=== PATIENT | male | born 1975 | race African-American/Black ===

== ENCOUNTER 2016-12-10 12:38 | Emergency (ER) | payer BC, OTHER ==
[~2016-12-10] VITALS: Ht 185.4 cm; Wt 140.6 kg
[~2016-12-10 12:38] MED LIST: ACHD5005 PO; AMLO5TAB2 GT; AMLO5TAB2 PO; ATEN50TA PO; CEPH500C PO; CPR500T PO; CYCL10TA9 PO; DICY10CA26 PO; HYDR-3714 PO; HYDR1TAB PO; NAPR-243 PO; NAPR550T PO; OMEP20CA12 PO; OMEP40CA36 PO; ONDA-42 SL; PRD20T PO; SULF1TAB38 PO
[2016-12-10] MEDS ORDERED: SILD100T (13:07)
[2016-12-10] MEDS ORDERED: DEXAMETHASONE PF 10 MG/ML (DECADRON) VIAL INJ ONE (13:45)
[2016-12-10] MEDS ORDERED: HYDROcodone/APAP 5 MG/325 MG (LORTAB) TAB PO ONE (13:45)
[2016-12-10] MEDS ORDERED: LIDOCAINE 1% INJ 20 ML (XYLOCAINE) VIAL INJ ONE (13:45)
--- NOTE | 2016-12-10 14:01 | Diagnostic Imaging Report ---
INDICATION: Recent left lower leg injury. Increasing pain. FINDINGS: AP and lateral views of the left tibia and fibula shows no fracture, dislocation or other acute bony abnormality. There are no bony erosions or periosteal thickenings. IMPRESSION: No acute abnormality is seen. Dictated by: Dictated on workstation # [id number]
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
--- NOTE | 2016-12-10 15:23 | Diagnostic Imaging Report ---
PROCEDURE: US left lower extremity venous. TECHNIQUE: Multiple real-time grayscale images were obtained over the left lower extremity in various projections. Additional duplex Doppler and color Doppler images were also obtained. INDICATION: Left leg pain and swelling. FINDINGS: There is normal compression, flow and augmentation demonstrated from the common femoral vein through the popliteal vein. The visualized calf veins appear patent. Musculature within the left calf appears edematous which may reflect an intramuscular tear and hemorrhage or edema. IMPRESSION: 1. No sonographic evidence of left lower extremity deep venous thrombosis. 2. Abnormal appearance of the musculature within the left calf suggesting a muscular injury with either intramuscular hemorrhage or edema. Dictated by: Dictated on workstation # [id number]
[2016-12-10] MEDS ORDERED: HYDR-3812 PO (15:33)
[2016-12-10 15:40] VITALS: BP 129/85
--- OUTSIDE RECORDS SUMMARY | 2016-12-11 18:32 | XMS REPORT ---
Author Author CAT CRUZ [employer] Address Unknown Phone Unavailable Care Team Providers Care Rv Technician Name Role Phone CAT CRUZ CP Unavailable Allergies No Known Allergies Problems Problem Type Condition ICD-9 Code Onset Dates Condition Status Assessment Screening for tuberculosis V74.1 Active Problem Acute pharyngitis 462 Active Problem Unspecified viral infection, in conditions classified elsewhere and of unspecified site 079.99 Active Problem Headache 784.0 Active Problem Other malaise and fatigue 780.79 Active Problem Essential hypertension, benign 401.1 Active Problem Cough 786.2 Active Problem Elevated blood pressure reading without diagnosis of hypertension 796.2 Active Problem Screening examination for pulmonary tuberculosis V74.1 Active Problem Obstructive chronic bronchitis, with (acute) exacerbation 491.21 Active Medications No Known Medications Procedures Procedure Coding System Code Date TB INTRADERMAL TEST CPT-4 27441 Feb 04, 2015 Results Name Result Date Reference Range Unit Abnormality Flag TB INTRADERMAL Summary Purpose eClinicalWorks Submission
--- OUTSIDE RECORDS SUMMARY | 2016-12-11 18:32 | XMS REPORT ---
Author JOSH Wright [facility] eClinical[employer] Address Unknown Phone Unavailable Care Team Providers Care Parts Counterperson Name Role Phone JOSH OREILLY Unavailable Allergies No Known Allergies Problems Problem Type Condition Code Onset Dates Condition Status Problem GERD (gastroesophageal reflux disease) K21.9 Active Problem Insomnia G47.00 Active Problem Essential hypertension I10 Active Medications No Known Medications Results No Known Results Summary Purpose eClinicalWorks Submission
--- OUTSIDE RECORDS SUMMARY | 2016-12-11 18:32 | XMS REPORT ---
Author Author BERNADINE TAN [facility] Address [address] [place] [address] Care Team Providers Care C2 Tactical Analysis Technician Name Role Phone BERNADINE TAN Unavailable PROBLEMS Type Condition ICD9-CM Code LQS05-LA Code Onset Dates Condition Status SNOMED Code Assessment Major depressive disorder with single episode, remission status unspecified F32.9 Feb, Active 77405408 Problem Major depressive disorder with single episode, remission status unspecified F32.9 Active 68205738 Problem Screening for tuberculosis Z11.1 Active 745427181 Problem GERD (gastroesophageal reflux disease) K21.9 Active 038838499 Problem Insomnia G47.00 Active 990063138 Problem Morbid obesity due to excess calories E66.01 Active 529278119 Problem Essential hypertension I10 Active 94856919 ALLERGIES No Known Allergies SOCIAL HISTORY No smoking Hx information available PLAN OF CARE VITAL SIGNS MEDICATIONS No Known Medications RESULTS No Results PROCEDURES Procedure Date Ordered Related Diagnosis Body Site Psych diagnostic evaluation, new patient Mar 14, 2016 IMMUNIZATIONS No Known Immunizations
--- OUTSIDE RECORDS SUMMARY | 2016-12-11 18:32 | XMS REPORT ---
Author JOSH Wright [facility] e[employer] Address Unknown Phone Unavailable Care Team Providers Care Oven Operator Automatic Name Role Phone JOSH OREILLY Unavailable Allergies No Known Allergies Problems Problem Type Condition Code Onset Dates Condition Status Problem GERD (gastroesophageal reflux disease) K21.9 Active Problem Insomnia G47.00 Active Problem Essential hypertension I10 Active Medications No Known Medications Results No Known Results Summary Purpose eClinicalWorks Submission
--- OUTSIDE RECORDS SUMMARY | 2016-12-11 18:33 | XMS REPORT ---
Author Author JOSH OREILLY Organization [facility] Address [address] [place] [address] Care Team Providers Care Fuel Assembler Name Role Phone AFIA JOSH Unavailable PROBLEMS Type Condition ICD9-CM Code BEO86-HQ Code Onset Dates Condition Status SNOMED Code Problem Major depressive disorder with single episode, remission status unspecified F32.9 Active 24160490 Problem Screening for tuberculosis Z11.1 Active 565934515 Problem GERD (gastroesophageal reflux disease) K21.9 Active 626985727 Problem Insomnia G47.00 Active 973886289 Problem Morbid obesity due to excess calories E66.01 Active 288758822 Problem Essential hypertension I10 Active 86445874 ALLERGIES No Known Allergies SOCIAL HISTORY No smoking Hx information available PLAN OF CARE VITAL SIGNS Height 73 in 2016-02-29 Weight 334.1 lbs 2016-02-29 BMI 44.07 kg/m2 2016-02-29 Blood pressure systolic 128 mmHg 2016-02-29 Blood pressure diastolic 94 mmHg 2016-02-29 MEDICATIONS Medication Instructions Dosage Frequency Start Date End Date Duration Status Amlodipine Besylate 5 mg Orally Once a day TAKE ONE TABLET BY MOUTH DAILY 24h Active Omeprazole 20 MG Orally Once a day 1 capsule 24h Apr, Active Breo Ellipta 200-25 MCG/INH Inhalation Once a day 1 puff 24h Jun, Active NyQuil Active RESULTS No Results PROCEDURES No Known procedures IMMUNIZATIONS No Known Immunizations
--- OUTSIDE RECORDS SUMMARY | 2016-12-11 18:33 | XMS REPORT ---
Author Author AFIA JOSH Organization [facility] Address [address] [place] [address] Care Team Providers Care Communication Signals Intelligence Name Role Phone JOSH OREILLY Unavailable PROBLEMS Type Condition ICD9-CM Code MAW51-QI Code Onset Dates Condition Status SNOMED Code Assessment Major depressive disorder with single episode, remission status unspecified F32.9 Feb, Active 08937806 Problem Major depressive disorder with single episode, remission status unspecified F32.9 Active 08061165 Problem Screening for tuberculosis Z11.1 Active 153148317 Problem GERD (gastroesophageal reflux disease) K21.9 Active 084414843 Problem Insomnia G47.00 Active 904560430 Problem Morbid obesity due to excess calories E66.01 Active 335423900 Problem Essential hypertension I10 Active 40666981 ALLERGIES Substance Reaction Event Type Date Status N.K.D.A. Unknown Non Drug Allergy Feb, Unknown SOCIAL HISTORY No smoking Hx information available PLAN OF CARE Activity Details Pending Test TSH Pending Test CBC Pending Test LIPID PANEL Pending Test CMP 3 Weeks,Reason: VITAL SIGNS Height 73 in 2016-03-14 Weight 330.9 lbs 2016-03-14 Heart Rate 80 bpm 2016-03-14 Respiratory Rate 18 2016-03-14 BMI 43.65 kg/m2 2016-03-14 Blood pressure systolic 120 mmHg 2016-03-14 Blood pressure diastolic 90 mmHg 2016-03-14 MEDICATIONS Medication Instructions Dosage Frequency Start Date End Date Duration Status Norvasc 10 MG Orally Once a day 1 tablet 24h Jun, 30 day(s) Active Lexapro 10 mg Orally Once a day 1 tablet 24h Feb, 90 days Active RESULTS No Results PROCEDURES Procedure Date Ordered Related Diagnosis Body Site TB INTRADERMAL TEST Mar 14, 2016 ASSAY THYROID STIM HORMONE Mar 14, 2016 COMPREHEN METABOLIC PANEL Mar 14, 2016 COMPLETE CBC W/AUTO DIFF WBC Mar 14, 2016 Office Visit, Est Pt., Level 4 Mar 14, 2016 LIPID PANEL Mar 14, 2016 IMMUNIZATIONS No Known Immunizations
--- OUTSIDE RECORDS SUMMARY | 2016-12-11 18:33 | XMS REPORT ---
Author Author JOSH OREILLY Organization [employer] Address Unknown Phone Unavailable Care Team Providers Care Critical Care Unit Nurse Name Role Phone JOSH OREILLY CP Unavailable Allergies, Adverse Reactions, Alerts Substance Reaction Event Type N.K.D.A. Info Not Available Non Drug Allergy Problems Problem Type Condition Code Onset Dates Condition Status Problem GERD (gastroesophageal reflux disease) K21.9 Active Problem Insomnia G47.00 Active Problem Essential hypertension I10 Active Assessment GERD (gastroesophageal reflux disease) K21.9 Active Assessment Insomnia G47.00 Active Assessment Cough R05 Active Assessment Essential hypertension I10 Active Medications Medication Code System Code Instructions Start Date End Date Status Dosage Temazepam [facility] [address]-45 15 MG Orally Once a day Jun 21, 2015 1 capsule at bedtime as needed Breo Ellipta [facility] [address]-67 200-25 MCG/INH Inhalation Once a day Jun 1 puff Omeprazole [facility] [address]-69 20 MG Orally Once a day Apr 20, 2015 1 capsule Amlodipine Besylate [facility] 03344137662 5 mg Orally Once a day TAKE ONE TABLET BY MOUTH DAILY 12 Hour Nasal [place] [facility] [address]-51 0.05 % Nasally Twice a day Jul 05, 2015 2 drops as needed Procedures Procedure Coding System Code Date Office Visit, Est Pt., Level 3 CPT-4 29024 Jul 05, 2015 Vital Signs Date/Time: Jul 05, 2015 Temperature 99.9 F Weight 319.9 lbs Height 73 in BMI 42.20 Index Blood Pressure Diastolic 92 mmHg Blood Pressure Systolic 120 mmHg Cardiac Monitoring Heart Rate 84 bpm Results No Known Results Summary Purpose eClinicalWorks Submission
--- OUTSIDE RECORDS SUMMARY | 2016-12-11 18:33 | XMS REPORT ---
Author Author JOSH OREILLY [facility] eClinicalWorks Address Unknown Phone Unavailable Care Team Providers Care Halftone Operator Name Role Phone JOSH OREILLY CP Unavailable Allergies, Adverse Reactions, Alerts Substance Reaction Event Type N.K.D.A. Info Not Available Non Drug Allergy Problems Problem Type Condition Code Onset Dates Condition Status Problem GERD (gastroesophageal reflux disease) K21.9 Active Problem Insomnia G47.00 Active Problem Essential hypertension I10 Active Assessment Insomnia G47.00 Active Assessment Elevated blood sugar R73.09 Active Assessment Essential hypertension I10 Active Assessment GERD (gastroesophageal reflux disease) K21.9 Active Medications Medication Code System Code Instructions Start Date End Date Status Dosage Omeprazole [facility] [address]-15 20 MG Orally Once a day Apr 20, 2015 1 capsule Norvasc [facility] [address]-83 10 MG Orally Once a day Jun 21, 2015 1 tablet Temazepam [facility] [address]-62 15 MG Orally Once a day Jun 21, 2015 1 capsule at bedtime as needed Amlodipine Besylate [facility] 62383637738 5 mg Orally Once a day TAKE ONE TABLET BY MOUTH DAILY Procedures Procedure Coding System Code Date Office Visit, Est Pt., Level 4 CPT-4 64920 Jun 21, 2015 GLYCATED HEMOGLOBIN TEST CPT-4 50828 Jun 21, 2015 Vital Signs Date/Time: Jun 21, 2015 Temperature 99.0 F Weight 317.0 lbs Height 73 in BMI 41.82 Index Blood Pressure Diastolic 90 mmHg Blood Pressure Systolic 130 mmHg Cardiac Monitoring Heart Rate 64 bpm Results Name Result Date Reference Range Unit Abnormality Flag A1C (IN HOUSE) ----A1C IN HOUSE 5.5 [id number] 4.30 - 5.6 % ----Lot # [id number] ----Exp date [id number] Summary Purpose eClinicalWorks Submission
--- OUTSIDE RECORDS SUMMARY | 2016-12-11 18:33 | XMS REPORT | Continuity of Care Document ---
Author Author [facility] Address Unknown Phone Unavailable Allergies Active Description Code Type Severity Reaction Onset Reported/Identified Relationship to Patient Clinical Status Yes No Known Drug Allergies [id number] Drug Allergy Mild N/A 01/11/2009 Medications Problems Date Dx Coded Attending Type Code Diagnosis Diagnosed By 07/11/2010 Ot 402.90 07/11/2010 Ot 530.81 07/11/2010 Ot 533.90 07/11/2010 Ot 786.59 07/11/2010 Ot 794.31 01/01/2011 Ot 685.0 01/13/2011 Ot 685.1 01/31/2012 V74.1 TB SCREENING 01/31/2012 V74.1 TB SCREENING 01/31/2012 V74.1 TB SCREENING 01/31/2012 V74.1 TB SCREENING 01/31/2012 V74.1 TB SCREENING 01/31/2012 CASSI GRIFFIN APRN V74.1 TB SCREENING 01/31/2012 ASHISH ESCOBEDO APRN V74.1 TB SCREENING 01/31/2012 V74.1 TB SCREENING 03/04/2012 Ot 724.2 03/04/2012 Ot 846.0 03/04/2012 Ot E000.8 03/04/2012 Ot E007.6 03/04/2012 Ot E849.4 03/04/2012 Ot E928.9 04/16/2012 079.99 VIRAL SYNDROME 04/16/2012 462 PHARYNGITIS ACUTE 04/16/2012 079.99 VIRAL SYNDROME 04/16/2012 462 PHARYNGITIS ACUTE 04/16/2012 079.99 VIRAL SYNDROME 04/16/2012 462 PHARYNGITIS ACUTE 04/16/2012 079.99 VIRAL SYNDROME 04/16/2012 462 PHARYNGITIS ACUTE 04/16/2012 079.99 VIRAL SYNDROME 04/16/2012 462 PHARYNGITIS ACUTE 04/16/2012 [employer], CASSI A 079.99 VIRAL SYNDROME 04/16/2012 CASSI GRIFFIN APRN A 462 PHARYNGITIS ACUTE 04/16/2012 ALOK ESCOBEDO APRNINA R 079.99 VIRAL SYNDROME 04/16/2012 ALOK ESCOBEDO APRNINA R 462 PHARYNGITIS ACUTE 04/16/2012 079.99 VIRAL SYNDROME 04/16/2012 462 PHARYNGITIS ACUTE 09/10/2012 491.21 BRONCHITIS AECB 09/10/2012 786.2 COUGH 09/10/2012 796.2 ELEVATED BLOOD PRESSURE READING WITHOUT DIAGNOSIS OF HYPERTENSION 09/10/2012 491.21 BRONCHITIS AECB 09/10/2012 786.2 COUGH 09/10/2012 796.2 ELEVATED BLOOD PRESSURE READING WITHOUT DIAGNOSIS OF HYPERTENSION 09/10/2012 491.21 BRONCHITIS AECB 09/10/2012 786.2 COUGH 09/10/2012 796.2 ELEVATED BLOOD PRESSURE READING WITHOUT DIAGNOSIS OF HYPERTENSION 09/10/2012 491.21 BRONCHITIS AECB 09/10/2012 786.2 COUGH 09/10/2012 796.2 ELEVATED BLOOD PRESSURE READING WITHOUT DIAGNOSIS OF HYPERTENSION 09/10/2012 491.21 BRONCHITIS AECB 09/10/2012 786.2 COUGH 09/10/2012 796.2 ELEVATED BLOOD PRESSURE READING WITHOUT DIAGNOSIS OF HYPERTENSION 09/10/2012 CASSI GRIFFIN APRN A 491.21 BRONCHITIS AECB 09/10/2012 ROXANA GRIFFIN APRNYL A 786.2 COUGH 09/10/2012 ROXANA GRIFFIN APRNYL A 796.2 ELEVATED BLOOD PRESSURE READING WITHOUT DIAGNOSIS OF HYPERTENSION 09/10/2012 ASHISH ESCOBEDO APRN R 491.21 BRONCHITIS AECB 09/10/2012 ALOK ESCOBEDO APRNINA R 786.2 COUGH 09/10/2012 ASHISH ESCOBEDO APRN R 796.2 ELEVATED BLOOD PRESSURE READING WITHOUT DIAGNOSIS OF HYPERTENSION 09/17/2012 401.1 HYPERTENSION, BENIGN ESSENTIAL 09/17/2012 401.1 HYPERTENSION, BENIGN ESSENTIAL 09/17/2012 401.1 HYPERTENSION, BENIGN ESSENTIAL 09/17/2012 401.1 HYPERTENSION, BENIGN ESSENTIAL 09/17/2012 CASSI GRIFFIN APRN A 401.1 HYPERTENSION, BENIGN ESSENTIAL 09/17/2012 ASHISH ESCOBEDO APRN R 401.1 HYPERTENSION, BENIGN ESSENTIAL 08/26/2013 DAVID NEWTON APRN Ot 787.01 08/26/2013 DAVID NEWTON APRN Ot 789.00 05/21/2014 ASHISH ESCOBEDO APRN 780.79 OTHER MALAISE AND FATIGUE 05/21/2014 ASHISH ESCOBEDO APRN 784.0 HEADACHE 06/18/2014 Ot 685.1 06/18/2014 Ot V72.83 06/24/2015 KRISHNA CLEMENS MD Ot F17.210 06/24/2015 KRISHNA CLEMENS MD Ot J06.9 Procedures Code Description [place] [address] STREP A (IN-HOUSE) 04/16/2012 2000F BLOOD PRESSURE CHECK 10/29/2012 87262 ROUTINE VENIPUNCTURE 05/22/2014 36515 MONO TEST (IN-HOUSE) 05/22/2014 93774 CBC 05/22/2014 [id number] GFR CALC (RESULT ONLY) 05/22/2014 55058 CMP 05/22/2014 72028 LIPID PANEL 05/22 13480 TSH 05/22/2014 32976 TESTOSTERONE TOTAL MALES 05/23/2014 Results Encounters ACCT No. Visit Date/Time Discharge Status Pt. Type Provider Facility Loc./Unit Complaint [id number] 05/22/2014 08:21:00 05/22/2014 23: 59:59 CLS Outpatient ASHISH ESCOBEDO APRN [id number] 11/05/2012 10:21:00 11/05/2012 23: 59:59 CLS Outpatient NIDIAAditya CASSI ZARATE [id number] 09/17/2012 09:38:00 09/17/2012 23: 59:59 CLS Outpatient [id number] 09/10/2012 09:05:00 09/10/2012 23: 59:59 CLS Outpatient [id number] 04/16/2012 11:57:00 04/16/2012 23:59 :59 CLS Outpatient [id number] 10/29/2012 10:03:00 Document Registration [id number] 10/15/2012 10:15:00 Document Registration [id number] 10/01/2012 15:05:00 Document Registration
--- OUTSIDE RECORDS SUMMARY | 2016-12-11 18:33 | XMS REPORT ---
Author Author LISBET GODINEZ [facility] [employer] Address Unknown Phone Unavailable Care Team Providers Care Human Resources Trainee Name Role Phone LISBET GODINEZ Unavailable Allergies, Adverse Reactions, Alerts Substance Reaction Event Type N.K.D.A. Info Not Available Non Drug Allergy Problems Problem Type Condition Code Onset Dates Condition Status Problem GERD (gastroesophageal reflux disease) K21.9 Active Problem Insomnia G47.00 Active Problem Essential hypertension I10 Active Assessment Upper respiratory infection J06.9 Active Assessment Pharyngitis J02.9 Active Assessment Essential hypertension I10 Active Assessment Insomnia G47.00 Active Medications Medication Code System Code Instructions Start Date End Date Status Dosage Omeprazole [facility] [address]-71 20 MG Orally Once a day Apr 20, 2015 1 capsule PredniSONE [facility] [address]-53 20 MG Orally Once a day May 20, 2015 May 25, 2015 1 tablet with food or milk Cheratussin AC [facility] [address]-70 100-10 MG/5ML Orally every 6 hrs May 20, 2015 May 25, 2015 5 ml Amlodipine Besylate [facility] 97673774342 5 mg Orally Once a day TAKE ONE TABLET BY MOUTH DAILY Temazepam [facility] [address]-62 7.5 MG Orally Once a day Apr 20, 2015 1 capsule at bedtime as needed Procedures Procedure Coding System Code Date COMPREHEN METABOLIC PANEL CPT-4 77055 May 20, 2015 ASSAY THYROID STIM HORMONE CPT-4 77457 May 20, 2015 COMPLETE CBC W/AUTO DIFF WBC CPT-4 52662 May 20, 2015 Office Visit, Est Pt., Level 3 CPT-4 38037 May 20, 2015 LIPID PANEL CPT-4 86904 May 20, 2015 VENIPUNCT, ROUTINE* CPT-4 90646 May 20, 2015 Vital Signs Date/Time: May 20, 2015 Temperature 97.8 F Weight 314.3 lbs Height 73 in BMI 41.46 Index Blood Pressure Diastolic 90 mmHg Blood Pressure Systolic 148 mmHg Cardiac Monitoring Heart Rate 82 bpm Results Name Result Date Reference Range Unit Abnormality Flag ROUTINE VENIPUNCTURE Summary Purpose eClinicalWorks Submission
--- OUTSIDE RECORDS SUMMARY | 2016-12-11 18:33 | XMS REPORT ---
Author Author LISBET GODINEZ [facility] e[employer] Address Unknown Phone Unavailable Care Team Providers Care Heavy Duty Custodian Name Role Phone LISBET GODINEZ CP Unavailable Allergies No Known Allergies Problems Problem Type Condition Code Onset Dates Condition Status Problem GERD (gastroesophageal reflux disease) K21.9 Active Problem Insomnia G47.00 Active Problem Essential hypertension I10 Active Assessment Elevated fasting blood sugar R73.01 Active Medications No Known Medications Results No Known Results Summary Purpose eClinicalWorks Submission
--- OUTSIDE RECORDS SUMMARY | 2016-12-11 18:33 | XMS REPORT ---
Author Author LISBET GODINEZ [facility] [employer] Address Unknown Phone Unavailable Care Team Providers Care Sole Layer Name Role Phone LISBET GODINEZ CP Unavailable Allergies, Adverse Reactions, Alerts Substance Reaction Event Type N.K.D.A. Info Not Available Non Drug Allergy Problems Problem Type Condition Code Onset Dates Condition Status Problem GERD (gastroesophageal reflux disease) K21.9 Active Problem Insomnia G47.00 Active Problem Essential hypertension I10 Active Assessment Insomnia G47.00 Active Assessment Essential hypertension I10 Active Assessment GERD (gastroesophageal reflux disease) K21.9 Active Medications Medication Code System Code Instructions Start Date End Date Status Dosage Omeprazole [facility] [address]-70 20 MG Orally Once a day Apr 20, 2015 1 capsule Amlodipine Besylate [facility] 47228368337 5 mg Orally Once a day TAKE ONE TABLET BY MOUTH DAILY Temazepam [facility] [address]-04 7.5 MG Orally Once a day Apr 20, 2015 1 capsule at bedtime as needed Procedures Procedure Coding System Code Date Office Visit, Est Pt., Level 3 CPT-4 54895 Apr 20, 2015 Vital Signs Date/Time: Apr 20, 2015 Temperature 97.7 F Weight 312.5 lbs Height 73 in BMI 41.22 Index Blood Pressure Diastolic 80 mmHg Blood Pressure Systolic 156 mmHg Cardiac Monitoring Heart Rate 86 bpm Results No Known Results Summary Purpose eClinicalWorks Submission
--- OUTSIDE RECORDS SUMMARY | 2016-12-11 18:33 | XMS REPORT ---
Author Author JOSH OREILLY [facility] eClinicalWorks Address Unknown Phone Unavailable Care Team Providers Care Director Of Special Education Name Role Phone JOSH OREILLY CP Unavailable Allergies No Known Allergies Problems Problem Type Condition Code Onset Dates Condition Status Problem Screening for tuberculosis Z11.1 Active Problem Morbid obesity due to excess calories E66.01 Active Problem Major depressive disorder with single episode, remission status unspecified F32.9 Active Problem Insomnia G47.00 Active Problem Essential hypertension I10 Active Problem GERD (gastroesophageal reflux disease) K21.9 Active Medications Medication Code System Code Instructions Start Date End Date Status Dosage Viagra [facility] [address]-67 100 MG Orally Once a day Mar 20, 2016 Apr 19, 2016 1 tablet as needed Results No Known Results Summary Purpose eClinicalWorks Submission
--- OUTSIDE RECORDS SUMMARY | 2016-12-11 18:33 | XMS REPORT ---
Author Author JOSH OREILLY Organization [employer] Address Unknown Phone Unavailable Care Team Providers Care Asphalt Heater Tender Name Role Phone JOSH OREILLY CP Unavailable Allergies, Adverse Reactions, Alerts Substance Reaction Event Type N.K.D.A. Info Not Available Non Drug Allergy Problems Problem Type Condition Code Onset Dates Condition Status Assessment Bronchitis J40 Active Problem Screening for tuberculosis Z11.1 Active Problem Morbid obesity due to excess calories E66.01 Active Problem Major depressive disorder with single episode, remission status unspecified F32.9 Active Problem Insomnia G47.00 Active Assessment Acute non-recurrent frontal sinusitis J01.10 Active Problem Essential hypertension I10 Active Problem GERD (gastroesophageal reflux disease) K21.9 Active Medications Medication Code System Code Instructions Start Date End Date Status Dosage Norvasc [facility] [address]-50 10 MG Orally Once a day Jun 21, 2015 1 tablet Promethazine-Codeine [facility] [address]-39 6.25-10 MG/5ML Orally every 6 hrs Apr 10, 2016 5 ml as needed Azithromycin [facility] [address]-49 250 MG Orally Once a day Apr 10, 2016 Apr 15, 2016 2 tablets on the first day, then 1 tablet daily for 4 days Viagra [facility] [address]-69 100 MG Orally Once a day Mar 20, 2016 Apr 19, 2016 1 tablet as needed Procedures Procedure Coding System Code Date DEPO MEDROL 40 MG/ML CPT-4 J1030 Apr 10, 2016 THER/PROPH/DIAG INJ, SC/IM CPT-4 85271 Apr 10, 2016 Office Visit, Est Pt., Level 3 CPT-4 22709 Apr 10, 2016 DEXAMETHASONE 4MG/ML (PER 1 MG) CPT-4 J1100 Apr 10, 2016 Vital Signs Date/Time: Apr 10, 2016 Cardiac Monitoring Heart Rate 66 bpm Weight 329.0 lbs Height 73 in BMI 43.40 Index Blood Pressure Diastolic 90 mmHg Blood Pressure Systolic 136 mmHg Results No Known Results Summary Purpose eClinicalWorks Submission
--- OUTSIDE RECORDS SUMMARY | 2016-12-11 18:34 | XMS REPORT ---
Author [facility]RIAN [facility] [employer] Address Unknown Phone Unavailable Care Team Providers Care Railroad Construction Director Name Role Phone BRIAN CRESPO CP Unavailable Allergies, Adverse Reactions, Alerts Substance Reaction Event Type N.K.D.A. Info Not Available Non Drug Allergy Problems Problem Type Condition Code Onset Dates Condition Status Problem GERD (gastroesophageal reflux disease) K21.9 Active Problem Insomnia G47.00 Active Problem Essential hypertension I10 Active Assessment Malaise R53.81 Active Assessment Chest tightness R07.89 Active Assessment Tobacco dependence F17.200 Active Medications Medication Code System Code Instructions Start Date End Date Status Dosage Amlodipine Besylate [facility] 04547942439 5 mg Orally Once a day TAKE ONE TABLET BY MOUTH DAILY Temazepam [facility] [address]-33 15 MG Orally Once a day Jun 21, 2015 1 capsule at bedtime as needed NyQuil ND 0 not defined Omeprazole [facility] [address]-68 20 MG Orally Once a day Apr 20, 2015 1 capsule Norvasc [facility] [address]-76 10 MG Orally Once a day Jun 21, 2015 1 tablet Procedures Procedure Coding System Code Date INFLUENZA ASSAY W/OPTIC CPT-4 68845 Jun 24, 2015 ELECTROCARDIOGRAM, TRACING CPT-4 34236 Jun 24, 2015 MEASURE BLOOD OXYGEN LEVEL CPT-4 28510 Jun 24, 2015 Office Visit, Est Pt., Level 4 CPT-4 50777 Jun 24, 2015 Vital Signs Date/Time: Jun 24, 2015 Temperature 98.0 F Weight 314.4 lbs Height 73 in Oximetry 99 % Blood Pressure Diastolic 80 mmHg Blood Pressure Systolic 112 mmHg Cardiac Monitoring Heart Rate 82 bpm BMI 41.48 Index Results Name Result Date Reference Range Unit Abnormality Flag INFLUENZA A & B (IN HOUSE) ----Exp date [id number] ----INFLUENZA A negative [id number] ----INFLUENZA B negative [id number] ----Control + [id number] ----Lot # [id number] EKG, TRACING (IN-HOUSE) Summary Purpose eClinicalWorks Submission
--- OUTSIDE RECORDS SUMMARY | 2016-12-11 18:34 | XMS REPORT ---
Author Author JOSH OREILLY Organization [facility] Address [address] [place] [address] Care Team Providers Care Recovery Advocate Name Role Phone JOSH OREILLY Unavailable PROBLEMS Type Condition ICD9-CM Code [id number] Code Onset Dates Condition Status SNOMED Code Problem Major depressive disorder with single episode, remission status unspecified F32.9 Active 28764224 Problem Screening for tuberculosis Z11.1 Active 068743385 Problem GERD (gastroesophageal reflux disease) K21.9 Active 785698929 Problem Insomnia G47.00 Active 322659567 Problem Morbid obesity due to excess calories E66.01 Active 107109133 Problem Essential hypertension I10 Active 19496731 ALLERGIES No Known Allergies SOCIAL HISTORY No smoking Hx information available PLAN OF CARE VITAL SIGNS MEDICATIONS No Known Medications RESULTS No Results PROCEDURES No Known procedures IMMUNIZATIONS No Known Immunizations
== END 2016-12-10 15:46 | disposition home or self-care (01) ==
LOC: EDUNIT# 12:38 → ER 12:40
DX: S86.112A Strain of other muscle(s) and tendon(s) of posterior muscle group at lower leg level, left leg, initial encounter (principal); M62.89 Other specified disorders of muscle; W18.42XA Slipping, tripping and stumbling without falling due to stepping into hole or opening, initial encounter; Y93.64 Activity, baseball; Y92.320 Baseball field as the place of occurrence of the external cause; Y99.8 Other external cause status
CPT/HCPCS: 73590; 96372; 99283

== ENCOUNTER 2018-09-04 15:24 | Emergency (ER) | payer BC, OTHER ==
[~2018-09-04] VITALS: Ht 185.4 cm; Wt 145.1 kg
[~2018-09-04 15:24] MED LIST changes: +ONDA4TAB8 SL; +SILD100T
[2018-09-04] MEDS ORDERED: ONDANSETRON 4 MG/2 ML (SDV) Z0FRAN IVP ONE (15:45)
[2018-09-04] MEDS ORDERED: ASPIRIN 81 MG CHEW (CHILDREN'S ASA) PO ONE (15:45)
[2018-09-04 15:51] LABS: BASOPHILS % (AUTO) 0 % (0-10); EOSINOPHILS # (AUTO) 0.1 10^3/uL (0.0-0.3); EOSINOPHILS % (AUTO) 1 % (0-10); HEMATOCRIT 40 % (40-54); HEMOGLOBIN 14.2 G/DL (13.3-17.7); LYMPHOCYTES # (AUTO) 4.3 X 10^3 (1.0-4.0); LYMPHOCYTES % (AUTO) 38 % (12-44); MEAN CORPUSCULAR HEMOGLOBIN 31 PG (25-34); MEAN CORPUSCULAR HGB CONC 35 G/DL (32-36); MEAN CORPUSCULAR VOLUME 89 FL (80-99); MEAN PLATELET VOLUME 9.9 FL (7.4-10.4); MONOCYTES # (AUTO) 0.9 X 10^3 (0.0-1.0); MONOCYTES % (AUTO) 8 % (0-12); NEUTROPHILS % (AUTO) 53 % (42-75); PLATELET COUNT 324 10^3/uL (130-400); RED CELL DISTRIBUTION WIDTH 13.8 % (10.0-14.5); WHITE BLOOD COUNT 11.3 10^3/uL (4.3-11.0)
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
[2018-09-04 16:05] LABS: INR 0.9 (0.8-1.4); PROTHROMBIN TIME PATIENT 12.3 SEC (12.2-14.7)
[2018-09-04 16:07] LABS: ALANINE AMINOTRANSFERASE 25 U/L (0-55); ALBUMIN 4.4 GM/DL (3.2-4.5); ALKALINE PHOSPHATASE 72 U/L (40-136); BILIRUBIN,TOTAL 0.4 MG/DL (0.1-1.0); BUN/CREATININE RATIO 10; CARBON DIOXIDE 20 MMOL/L (21-32); CHLORIDE 105 MMOL/L (98-107); CREATININE SERUM 1.14 MG/DL (0.60-1.30); GFR ESTIMATED > 60; GLUCOSE 141 MG/DL (70-105); MAGNESIUM 1.9 MG/DL (1.8-2.4); POTASSIUM 3.1 MMOL/L (3.6-5.0); SODIUM 139 MMOL/L (135-145); TOTAL PROTEIN 7.2 GM/DL (6.4-8.2)
[2018-09-04] MEDS ORDERED: KCL 10 MEQ TAB (MICRO K) PO STA (16:10)
[2018-09-04 16:13] LABS: MYOGLOBIN SERUM 32.1 NG/ML (10.0-92.0)
[2018-09-04] MEDS ORDERED: NAPR-1071 PO (16:32)
--- NOTE | 2018-09-04 16:59 | Diagnostic Imaging Report ---
Indication: Shortness of breath and back pain Portable chest 4:14 PM Heart size and pulmonary vascular normal. Lungs are clear. There are no effusions or pneumothoraces. Impression: Negative chest Dictated by: Dictated on workstation # [id number]
[2018-09-04 17:14] VITALS: BP 123/77
== END 2018-09-04 17:14 | disposition home or self-care (01) ==
LOC: EDUNIT# 15:24 → ER 15:25
DX: R42 Dizziness and giddiness (principal); M54.5 Low back pain; I10 Essential (primary) hypertension; K21.9 Gastro-esophageal reflux disease without esophagitis; F12.10 Cannabis abuse, uncomplicated; Z90.49 Acquired absence of other specified parts of digestive tract; Z98.890 Other specified postprocedural states
CPT/HCPCS: 36415; 71045; 80053; 82962; 83735; 83874; 84484; 85025; 85610; 85730; 93005; 93041; 96374

== ENCOUNTER → 2018-09-26 | Outpatient (CLI) | payer BC, OTHER ==
[~2018-09-26] MED LIST changes: +NAPR-1071 PO
--- NOTE | 2018-09-26 14:32 | Diagnostic Imaging Report ---
PROCEDURE: MRI lumbar spine. TECHNIQUE: Multiplanar, multisequence MRI of the lumbar spine was performed without contrast. INDICATION: Low back pain and left leg pain with paresthesia. FINDINGS: Lumbar spinal curvature and alignment are unremarkable. The AP dimension of spinal canal is at the lower limits of normal, diffusely. This may be due to congenitally short pedicles. There is probable lumbarization of the S1 segment. With this assumption, conus medullaris is unremarkable at the T12 level. There is mild annular bulging of L3-L4 and L4-L5 disc resulting in mild spinal and bilateral neural foraminal stenoses. At L5-S1, there is left paramedian protrusion causing mild left lateral recess and moderate bilateral neural foraminal stenosis, greater on the left. No marrow signal abnormality is seen to indicate fracture. IMPRESSION: 1. Assuming lumbarization of S1 segment, disc bulging is present at the L3-L4 and L4-L5 levels with mild spinal and neural foraminal stenosis. 2. At L5-S1, left paramedian disc protrusion causes mild left lateral recess stenosis with moderate neural foraminal stenosis, greater on the left. Dictated by: Dictated on workstation # [id number]
== END ==
LOC: RAD 09-20 14:04
PROVIDERS: ATTEND Nurse Practitioner
DX: M51.17 Intervertebral disc disorders with radiculopathy, lumbosacral region (principal); M48.07 Spinal stenosis, lumbosacral region
CPT/HCPCS: 72148

== ENCOUNTER → 2018-11-27 | Outpatient (CLI) | payer BC ==
--- NOTE | 2018-11-27 16:50 | Diagnostic Imaging Report ---
INDICATION: Left scrotal lump. FINDINGS: Corresponding to the palpable abnormality. There is an unilocular simple-appearing left-sided epididymal head cyst measuring 1.1 cm. No testicular mass. No hernia or significant hydrocele. IMPRESSION: Simple benign left epididymal head cyst correlates with the palpable abnormality. The study is otherwise unremarkable. Dictated by: Dictated on workstation # [id number]
== END ==
LOC: RAD 11:59
PROVIDERS: ATTEND Nurse Practitioner Family
DX: N50.3 Cyst of epididymis (principal)
CPT/HCPCS: 76870

== ENCOUNTER 2019-02-05 11:47 | Outpatient (CLI) | payer BC ==
[~2019-02-05] VITALS: Ht 185.4 cm; Wt 145.1 kg
[2019-02-05] MEDS: NS IV 1000 ML 2,000 ML IV SCH ×2 (11:20→12:20)
[2019-02-05 14:30] VITALS: BP 132/92
--- NOTE | 2019-02-05 14:30 | NUR ---
PATIENT DISCHARGED FROM [facility] [place] TO RADIOLOGY FOR CT ABD/PELVIS.
--- NOTE | 2019-02-05 15:28 | Diagnostic Imaging Report ---
PROCEDURE: CT urinary tract, rule out kidney stone. TECHNIQUE: Multiple contiguous axial images were obtained through the abdomen and pelvis without the use of intravenous contrast. Auto Exposure Controls were utilized during the CT exam to meet ALARA standards for radiation dose reduction. INDICATION: Right flank pain. COMPARISON: 02/06/2018. FINDINGS: Included portions of the lung bases are clear. CT abdomen: Normal appendix cannot be adequately identified, but is reported to be surgically absent. Small bowel loops are nondistended. Kidneys have an unremarkable noncontrast CT appearance. No renal or ureteral calculi are seen on either side. Additionally, there is no hydronephrosis or other evidence of obstruction. The spleen, pancreas, adrenal glands, and liver have an unremarkable noncontrast CT appearance. There is no loculated fluid collection, free fluid, or free air within the abdomen. No abnormal mesenteric or retroperitoneal adenopathy is seen. Osseous structures show no acute abnormalities. CT pelvis: Since the previous exam, there has been interval development of ellipsoid hypodensity within the posterior retroperitoneal margins of the left hemipelvis just central to the medial portion of the left gluteus medius muscle. Lesion in question measures 4.4 x 3.2 cm in axial dimension x 3.2 cm in CC dimension. Urinary bladder is unopacified. No calculi are seen within the urinary bladder. There is no free fluid or free air within the pelvis. Osseous structures show no acute abnormalities. IMPRESSION: 1. Interval development of hypodensity within the posterior left pelvis as described above. Lesion appears to be predominantly fluid-filled. Conceivably, this could be on the basis of interval development of lymphocele, lymphangioma, or large varix. Correlation with postcontrast MRI is recommended to evaluate for internal solid component. 2. Otherwise, no CT explanation for patient's right flank pain and hematuria. Results were called to [place] Morales by Dr. Ahn at approximately 1515 hrs on 02/05/2019. Dictated by: Dictated on workstation # [id number]
== END 2019-02-05 14:30 | disposition designated cancer center or children's hospital (05) ==
LOC: RAD 11:47
PROVIDERS: ATTEND Nurse Practitioner Family
DX: E86.0 Dehydration (principal); R11.0 Nausea; R51 Headache; R31.9 Hematuria, unspecified; R10.9 Unspecified abdominal pain
CPT/HCPCS: 74176; 96360

== ENCOUNTER → 2019-02-13 | Outpatient (CLI) | payer BC | LOC: RAD 07:50 | PROVIDERS: ATTEND Nurse Practitioner Family | DX: R42 Dizziness and giddiness (principal); Z53.8 Procedure and treatment not carried out for other reasons ==

== ENCOUNTER → 2019-02-21 | Outpatient (CLI) | payer BC ==
[~2019-02-21] MED LIST changes: +CATHETER FLUSH 10 ML SYR IV PRN
--- NOTE | 2019-02-21 19:55 | Diagnostic Imaging Report ---
EXAMINATION: Hepatobiliary scan with ejection fraction. INDICATION: Right upper quadrant pain. TECHNIQUE: This study was performed following administration of 5.45 mCi of Choletec. 8 ounces of Ensure was also utilized for the ejection fraction calculation. FINDINGS: There are no prior nuclear medicine studies available for comparison. The CT abdomen/pelvis exam of 02/05/2019 failed to show any sign of an acute abnormality of the gallbladder. On this study, there is uptake of the radiotracer by the gallbladder by 30 minutes. This would weight against the diagnosis of acute cholecystitis. There is also extension of the radiotracer into the small bowel indicating that the common bile duct is not obstructed. The ejection fraction is 59.8% (normal greater than 35%). IMPRESSION: 1. There is no evidence for acute cholecystitis or for obstruction of the common bile duct. 2. The ejection fraction is 59.8% and within normal limits. Dictated by: Dictated on workstation # [id number]
== END ==
LOC: RAD 09:23
PROVIDERS: ATTEND Nurse Practitioner Family
DX: R10.11 Right upper quadrant pain (principal)
CPT/HCPCS: 78227

== ENCOUNTER 2020-07-02 04:05 | Emergency (ER) | payer BC ==
[~2020-07-02] VITALS: Ht 182.9 cm; Wt 154.5 kg
[~2020-07-02 04:05] MED LIST changes: -CATHETER FLUSH 10 ML SYR IV PRN
[2020-07-02] MEDS ORDERED: LACTATED RINGERS 1,000 ML IV ONE (04:30)
[2020-07-02] MEDS ORDERED: ONDANSETRON 4 MG/2 ML (SDV) Z0FRAN IVP ONE (04:30)
[2020-07-02] MEDS ORDERED: KETOROLAC 30 MG/ML VIAL IVP ONE (04:30)
[2020-07-02 04:41] LABS: BASOPHILS # (AUTO) 0.1 10^3/uL (0.0-0.1); BASOPHILS % (AUTO) 1 % (0-10); EOSINOPHILS # (AUTO) 0.3 10^3/uL (0.0-0.3); EOSINOPHILS % (AUTO) 3 % (0-10); HEMATOCRIT 41 % (40-54); HEMOGLOBIN 13.8 g/dL (13.3-17.7); LYMPHOCYTES # (AUTO) 2.9 10^3/uL (1.0-4.0); LYMPHOCYTES % (AUTO) 31 % (12-44); MEAN CORPUSCULAR HEMOGLOBIN 31 pg (25-34); MEAN CORPUSCULAR HGB CONC 34 g/dL (32-36); MEAN CORPUSCULAR VOLUME 91 fL (80-99); MEAN PLATELET VOLUME 9.7 fL (9.0-12.2); MONOCYTES # (AUTO) 0.9 10^3/uL (0.0-1.0); MONOCYTES % (AUTO) 9 % (0-12); NEUTROPHILS # (AUTO) 5.3 10^3/uL (1.8-7.8); NEUTROPHILS % (AUTO) 56 % (42-75); PLATELET COUNT 297 10^3/uL (130-400); WHITE BLOOD COUNT 9.4 10^3/uL (4.3-11.0)
[2020-07-02 04:50] LABS: CHLORIDE 106 MMOL/L (98-107); POTASSIUM 3.7 MMOL/L (3.6-5.0); SODIUM 142 MMOL/L (135-145)
[2020-07-02 04:52] LABS: CALCIUM 9.6 MG/DL (8.5-10.1); INR 0.9 (0.8-1.4); PROTHROMBIN TIME PATIENT 12.6 SEC (12.2-14.7)
[2020-07-02 04:53] LABS: GLUCOSE 121 MG/DL (70-105); TOTAL PROTEIN 6.9 GM/DL (6.4-8.2)
[2020-07-02 04:54] LABS: BILIRUBIN,TOTAL 0.3 MG/DL (0.1-1.0); CARBON DIOXIDE 23 MMOL/L (21-32)
[2020-07-02 04:56] LABS: ALKALINE PHOSPHATASE 74 U/L (40-136); CREATININE SERUM 1.14 MG/DL (0.60-1.30); GFR ESTIMATED > 60
[2020-07-02 04:57] LABS: BUN/CREATININE RATIO 11
[2020-07-02 04:59] LABS: ALANINE AMINOTRANSFERASE 39 U/L (0-55)
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
[2020-07-02] MEDS ORDERED: BENZ100C18 PO (05:37)
[2020-07-02] MEDS ORDERED: ONDA4TAB11 SL (05:37)
--- NOTE | 2020-07-02 05:38 | Diagnostic Imaging Report ---
EXAMINATION: AP upright portable chest INDICATION: Chest pain. COMPARISON: Multiple priors, most recent performed on 09/04/2018. FINDINGS: The lungs are clear and the pulmonary vasculature is normal. No pneumothorax or large pleural effusion. There is eventration of the right hemidiaphragm. Heart is top normal in size. Mediastinal contours are unchanged. No acute osseous abnormalities identified. IMPRESSION: No radiographic evidence of acute chest disease. No significant change from prior. Dictated by: Dictated on workstation # [id number]
[2020-07-02 06:00] VITALS: BP 129/86
== END 2020-07-02 06:00 | disposition home or self-care (01) ==
LOC: EDUNIT# 04:05 → ER 04:08
DX: J11.1 Influenza due to unidentified influenza virus with other respiratory manifestations (principal); R11.2 Nausea with vomiting, unspecified; E66.9 Obesity, unspecified; I10 Essential (primary) hypertension; F17.290 Nicotine dependence, other tobacco product, uncomplicated; Z20.828 Contact with and (suspected) exposure to other viral communicable diseases; Z68.42 Body mass index [BMI] 45.0-49.9, adult
CPT/HCPCS: 71045; 80053; 83615; 83735; 83874; 84145; 84484; 85025; 85379; 85610; 85730; 86141; 87804; 93005; 93041; 99284; U0002; 36415; 87635

== ENCOUNTER 2022-06-26 10:26 | Emergency (ER) | payer BC, OTHER ==
[~2022-06-26] VITALS: Ht 182 cm; Wt 154.0 kg
[~2022-06-26 10:26] MED LIST changes: +BENZ100C18 PO; +ONDA4TAB11 SL
[2022-06-26] MEDS ORDERED: KETOROLAC 30 MG/ML VIAL IVP STA (10:36)
--- NOTE | 2022-06-26 10:38 | ED Abdominal Pain ---
General Stated Complaint: ABD PAIN Source of Information: Patient History of Present Illness Date Seen by Provider: Jun 26, 2022 Time Seen by Provider: 10:36 Initial Comments PT ARRIVES VIA POV FROM HOME C/O RIGHT FLANK PAIN, RADIATING TO ENTIRE RIGHT ABDOMEN FOR THE LAST 3 DAYS RATES PAIN 10/10 + NAUSEA, NO VOMITING NORMAL BM'S NO URINARY SYMPTOMS NO FEVER NO RASH HE HAS NOT TAKEN ANYTHING FOR PAIN HE HAS NOT SOUGHT CARE UNTIL TODAY SYMPTOMS GETTING WORSE HAD SIMILAR ABOUT A YEAR AGO, NEVER SOUGHT CARE HAS HAD AN APPENDECTOMY, NO OTHER ABDOMINAL SURGERIES HAS HISTORY OF HTN AND TAKES MEDICATION FOR IT, NO OTHER MEDICATIONS OR MEDICAL PROBLEMS PCP: DR. EPPERSON, [facility] [place]ies and Home Medications Allergies Coded Allergies: No Known Drug Allergies (Unverified , 01/11/09) Patient Home Medication List Amlodipine Besylate (Amlodipine Besylate) 5 Mg Tablet, 5 MG PO DAILY, (Reported) Entered as Reported by: DINA BOWLING on 06/18/14 1637 Benzonatate (Tessalon Perles) 100 Mg Capsule, 200 MG PO TID PRN for COUGH Prescribed by: ALICIA MONTENEGRO on 07/02/20 0537 Hydrocodone Bit/Acetaminophen (Lortab 5 Mg Tablet) 1 Each Tablet, 1 EACH PO Q4H PRN for PAIN Prescribed by: ALICIA MONTENEGRO on 12/10/16 1533 Naproxen (Naprosyn) 500 Mg Tablet, 500 MG PO BID PRN PRN for PAIN-MILD TO MODERATE Prescribed by: JAMIE LAGUNAS on 09/04/18 1632 Ondansetron (Zofran Odt) 4 Mg Tab.rapdis, 4 MG SL Q4H PRN for NAUSEA/VOMITING- 1ST LINE Prescribed by: YANIRA MATAMOROS on 02/06/18 2107 Ondansetron (Ondansetron Odt) 4 Mg Tab.rapdis, 4 MG SL Q4H PRN for NAUSEA/VOMITING Prescribed by: ALICIA MONTENEGRO on 07/02/20 0537 Sildenafil Citrate (Viagra) 100 Mg Tablet, (Reported) Entered as Reported by: SHERLEY JOHNSON on 12/10/16 1307 Review of Systems Review of Systems Constitutional: no symptoms reported Respiratory: No Symptoms Reported Cardiovascular: No Symptoms Reported Gastrointestinal: See HPI, Abdominal Pain; Denies Constipated, Denies Diarrhea; Nausea Genitourinary: Denies Burning, Denies Discharge, Denies Drainage, Denies Frequency; Flank Pain; Denies Hematuria, Denies Incontinence, Denies Pain, D enies Urgency Musculoskeletal: see HPI, back pain Skin: no symptoms reported Psychiatric/Neurological: Anxiety; Denies Numbness, Denies Paresthesia, Denies Tingling, Denies Weakness Endocrine: No Symptoms Reported Hematologic/Lymphatic: No Symptoms Reported Past Yevzrgp-Qkkerq-Ojltio Hx Patient Social History Tobacco Use?: No Substance use?: Yes Substance type: Marijuana Additional substance use comme: UDS + FOR THC 06/26/22 Alcohol Use?: No Seasonal Allergies Seasonal Allergies: No Past Medical History Surgeries: Yes (RIGHT LEG RIRI / PLATE--FEMUR/TIB-FIB; APPY; cardiac cath -no intervention) Appendectomy, Orthopedic Respiratory: No Cardiac: Yes Hypertension Neurological: No Reproductive Disorders: No Sexually Transmitted Disease: No Genitourinary: No Gastrointestinal: Yes Gastroesophageal Reflux Musculoskeletal: Yes (RIGHT TIB/FIB AND FEMUR) Fractures Endocrine: No HEENT: No Cancer: No Psychosocial: No Integumentary: No Blood Disorders: No Physical Exam Vital Signs Vital Signs - First Documented 06/26/22 10:47 Temp 36.8 Pulse 108 Resp 30 B/P (MAP) 167/7 (60) Pulse Ox 99 O2 Delivery Room Air Capillary Refill : Height/Weight/BMI Height: 6'1.00" Weight: 320lbs. oz. 145.125501pb; 46.00 BMI Method:Stated General Appearance: obese, other (EXTREMELY DRAMATIC, HYPERVENTILATING, HOLDING RIGHT SIDE) Respiratory: no respiratory distress, no accessory muscle use Cardiovascular: regular rate, rhythm, no murmur Gastrointestinal: soft, guarding; No rebound; tenderness (RIGHT FLANK AND DIFFUSE RIGHT ABDOMINAL TENDERNESS) Extremities: normal inspection, normal capillary refill Back: no vertebral tenderness, CVA tenderness (R) Neurologic/Psychiatric: gear setter II-XII nml as tested, no motor/sensory deficits, alert, oriented x 3 Skin: normal color (PT IS BLACK), warm/dry; No rash Progress/Results/Core Measures Results/Orders Lab Results Laboratory Tests Test 06/26/22 10:38 06/26/22 11:49 Range/Units White Blood Count 11.6 H 4.3-11.0 10^3/uL Red Blood Count 4.72 4.30-5.52 10^6/uL Hemoglobin 14.7 13.3-17.7 g/dL Hematocrit 42 40-54 % Mean Corpuscular Volume 89 80-99 fL Mean Corpuscular Hemoglobin 31 25-34 pg Mean Corpuscular Hemoglobin Concent 35 32-36 g/dL Red Cell Distribution Width 12.8 10.0-14.5 % Platelet Count 341 130-400 10^3/uL Mean Platelet Volume 9.7 9.0-12.2 fL Immature Granulocyte % (Auto) 0 % Neutrophils (%) (Auto) 52 42-75 % Lymphocytes (%) (Auto) 39 12-44 % Monocytes (%) (Auto) 8 0-12 % Eosinophils (%) (Auto) 1 0-10 % Basophils (%) (Auto) 1 0-10 % Neutrophils # (Auto) 6.0 1.8-7.8 10^3/uL Lymphocytes # (Auto) 4.5 H 1.0-4.0 10^3/uL Monocytes # (Auto) 0.9 0.0-1.0 10^3/uL Eosinophils # (Auto) 0.1 0.0-0.3 10^3/uL Basophils # (Auto) 0.1 0.0-0.1 10^3/uL Immature Granulocyte # (Auto) 0.0 0.0-0.1 10^3/uL Sodium Level 139 135-145 MMOL/L Potassium Level 3.6 3.6-5.0 MMOL/L Chloride Level 106 98-107 MMOL/L Carbon Dioxide Level 23 21-32 MMOL/L Anion Gap 10 5-14 MMOL/L Blood Urea Nitrogen 10 7-18 MG/DL Creatinine 1.18 0.60-1.30 MG/DL Estimat Glomerular Filtration Rate 77 BUN/Creatinine Ratio 8 Glucose Level 105 70-105 MG/DL Calcium Level 9.6 8.5-10.1 MG/DL Corrected Calcium 8.5-10.1 MG/DL Total Bilirubin 0.4 0.1-1.0 MG/DL Aspartate Amino Transf (AST/SGOT) 26 5-34 U/L Alanine Aminotransferase (ALT/SGPT) 41 0-55 U/L Alkaline Phosphatase 73 40-136 U/L Total Protein 7.8 6.4-8.2 GM/DL Albumin 4.6 H 3.2-4.5 GM/DL Serum Alcohol < 10 <10 MG/DL Urine Color YELLOW Urine Clarity CLEAR Urine pH 6.0 5-9 Urine Specific [place] 1.025 H 1.016-1.022 Urine Protein NEGATIVE NEGATIVE Urine Glucose (UA) NEGATIVE NEGATIVE Urine Ketones NEGATIVE NEGATIVE Urine Nitrite NEGATIVE NEGATIVE Urine Bilirubin NEGATIVE NEGATIVE Urine Urobilinogen 0.2 < = 1.0 MG/DL Urine Leukocyte Esterase NEGATIVE NEGATIVE Urine RBC (Auto) NEGATIVE NEGATIVE Urine RBC NONE /HPF Urine WBC NONE /HPF Urine Squamous Epithelial Cells 0-2 /HPF Urine Crystals NONE /LPF Urine Bacteria NEGATIVE /HPF Urine Casts NONE /LPF Urine Mucus NEGATIVE /LPF Urine Culture Indicated NO Urine Opiates Screen NEGATIVE NEGATIVE Urine Oxycodone Screen NEGATIVE NEGATIVE Urine Methadone Screen NEGATIVE NEGATIVE Urine Propoxyphene Screen NEGATIVE NEGATIVE Urine Barbiturates Screen NEGATIVE NEGATIVE Ur Tricyclic Antidepressants Screen NEGATIVE NEGATIVE Urine Phencyclidine Screen NEGATIVE NEGATIVE Urine Amphetamines Screen NEGATIVE NEGATIVE Urine Methamphetamines Screen NEGATIVE NEGATIVE Urine Benzodiazepines Screen NEGATIVE NEGATIVE Urine Cocaine Screen NEGATIVE NEGATIVE Urine Cannabinoids Screen POSITIVE H NEGATIVE My Orders Orders - MITCH DOMINGUEZ DO Ed Iv/Invasive Line Start (06/26/22 10:36) Ct Abd/Pelvis Wo(Kidney Stone) (06/26/22 10:36) Abdomen/Kub 1view (06/26/22 10:36) Cbc With Automated Diff (06/26/22 10:36) Comprehensive Metabolic Panel (06/26/22 10:36) Ua Culture If Indicated (06/26/22 10:36) Ed Iv/Invasive Line Start (06/26/22 10:36) Lactated Ringers (Lr 1000 Ml Iv Solution (06/26/22 10:45) Ketorolac Injection (Toradol Injection) (06/26/22 10:36) Ondansetron Injection (Zofran Injectio (06/26/22 10:45) Alcohol (06/26/22 10:48) Drug Screen Stat (Urine) (06/26/22 10:48) Us Gallbladder [id number] (06/26/22 12:43) Orphenadrine Inj (Ed Only) (Norflex Inje (06/26/22 12:45) Diphenhydramine Injection (Benadryl Inje (06/26/22 12:45) Us Scrotum (Testicle) [id number] (06/26/22 13:09) Medications Given in ED Current Medications Medications Dose Ordered Sig/Melvin Route Start Time Stop Time Status Last Admin Dose Admin Diphenhydramine HCl 50 mg ONCE ONCE IVP 06/26/22 12:45 06/26/22 12:46 DC 06/26/22 13:10 50 MG Lactated Ringer's 1,000 ml @ 0 mls/hr Q0M ONCE IV 06/26/22 10:45 06/26/22 10:46 DC 06/26/22 10:43 0 MLS/HR Ondansetron HCl 4 mg ONCE ONCE IVP 06/26/22 10:45 06/26/22 10:46 DC 06/26/22 10:43 4 MG Orphenadrine Citrate 60 mg ONCE ONCE IV 06/26/22 12:45 06/26/22 12:46 DC 06/26/22 13:09 60 MG Vital Signs/I&O 06/26/22 10:47 Temp 36.8 Pulse 108 Resp 30 B/P (MAP) 167/7 (60) Pulse Ox 99 O2 Delivery Room Air Progress Progress Note : Progress Note GIVEN: -IV FLUIDS -ZOFRAN -TORADOL--PAIN DOWN TO 5/10, AND PT IS MUCH CALMER AND NO LONGER HYPERVENTILATING. Diagnostic Imaging Comments CT ABDOMEN/PELVIS-=-PER RADIOLOGIST REPORT AT 1143 FINDINGS: There is no hydroureteronephrosis. No radiopaque urinary tract calculi. No perinephric or periureteric stranding or edema. Some chronic incidental extra-ureteropelvic phleboliths are present. A chronic left pelvic sidewall cyst posteriorly is not significantly changed from prior and may be minimally smaller. This likely is a lymphocele, today 3.4 x 2.5 cm, previously 4.4 x 3 cm. No new mass. No soft tissue density lesion. No lymphadenopathy. There is no appendicitis, diverticulitis, ileus, or bowel obstruction. Liver, gallbladder, bile ducts, spleen, adrenals, and pancreas are negative. The aorta is nonaneurysmal. No abscess, hematoma, or acute-appearing fluid collection. Degenerative changes to the spine, chronic. Lung bases and bony structures are nonacute. IMPRESSION: 1. Unobstructed unremarkable-appearing urinary tracts. No radiodense stone. No hydroureteronephrosis. Chronic left posterolateral pelvic sidewall cyst, stable if not slightly decreased. 2. No acute-appearing abnormality. No adverse development from prior. Reviewed: Reviewed by Me Departure Impression Primary Impression: RIGHT SIDED ABDOMINAL PAIN AND FLANK PAIN Disposition: HOME, SELF-CARE Condition: Improved Departure-Patient Inst. Decision time for Depature: 14:15 Referrals: [facility] (PCP) Primary Care Physician SAMMIE WOODWARD APRN (Family) Primary Care Physician Patient Instructions: Abdominal Pain, Adult ED, Flank Pain ED Add. Discharge Instructions: HOME, REST FOLLOW UP WITH YOUR DR IN 2-3 DAYS IF NO BETTER, RETURN TO ER IF WORSE Scripts Ketorolac Tromethamine (Ketorolac Tromethamine) 10 Mg Tablet 10 MG PO Q6H for Pain, #15 TAB Prov: MITCH DOMINGUEZ DO 06/26/22 Tizanidine HCl (Zanaflex) 4 Mg Capsule 4 MG PO TID for Spasms, #15 CAP Prov: MITCH DOMINGUEZ DO 06/26/22 MITCH DOMINGUEZ DO Jun 26, 2022 10:38
[2022-06-26] MEDS ORDERED: ONDANSETRON 4 MG/2 ML (SDV) Z0FRAN IVP ONE (10:45)
[2022-06-26] MEDS ORDERED: LACTATED RINGERS 1,000 ML IV ONE (10:45)
[2022-06-26 10:47] LABS: BASOPHILS # (AUTO) 0.1 10^3/uL (0.0-0.1); BASOPHILS % (AUTO) 1 % (0-10); EOSINOPHILS # (AUTO) 0.1 10^3/uL (0.0-0.3); EOSINOPHILS % (AUTO) 1 % (0-10); HEMATOCRIT 42 % (40-54); HEMOGLOBIN 14.7 g/dL (13.3-17.7); LYMPHOCYTES # (AUTO) 4.5 10^3/uL (1.0-4.0); LYMPHOCYTES % (AUTO) 39 % (12-44); MEAN CORPUSCULAR HEMOGLOBIN 31 pg (25-34); MEAN CORPUSCULAR HGB CONC 35 g/dL (32-36); MEAN CORPUSCULAR VOLUME 89 fL (80-99); MEAN PLATELET VOLUME 9.7 fL (9.0-12.2); MONOCYTES # (AUTO) 0.9 10^3/uL (0.0-1.0); MONOCYTES % (AUTO) 8 % (0-12); NEUTROPHILS % (AUTO) 52 % (42-75); PLATELET COUNT 341 10^3/uL (130-400); WHITE BLOOD COUNT 11.6 10^3/uL (4.3-11.0)
[2022-06-26 11:05] LABS: ALANINE AMINOTRANSFERASE 41 U/L (0-55); ALBUMIN 4.6 GM/DL (3.2-4.5); ALKALINE PHOSPHATASE 73 U/L (40-136); BILIRUBIN,TOTAL 0.4 MG/DL (0.1-1.0); BUN/CREATININE RATIO 8; CALCIUM 9.6 MG/DL (8.5-10.1); CARBON DIOXIDE 23 MMOL/L (21-32); CHLORIDE 106 MMOL/L (98-107); CREATININE SERUM 1.18 MG/DL (0.60-1.30); GFR ESTIMATED 77; GLUCOSE 105 MG/DL (70-105); POTASSIUM 3.6 MMOL/L (3.6-5.0); SODIUM 139 MMOL/L (135-145); TOTAL PROTEIN 7.8 GM/DL (6.4-8.2)
--- NOTE | 2022-06-26 11:36 | Diagnostic Imaging Report ---
PROCEDURE: CT urinary tract, rule out kidney stone. TECHNIQUE: Multiple contiguous axial images were obtained through the abdomen and pelvis without the use of intravenous contrast. Auto Exposure Controls were utilized during the CT exam to meet ALARA standards for radiation dose reduction. INDICATION: Right flank pain radiating around the abdomen. COMPARISON: Study compared with exam from 02/05/2019. FINDINGS: There is no hydroureteronephrosis. No radiopaque urinary tract calculi. No perinephric or periureteric stranding or edema. Some chronic incidental extra-ureteropelvic phleboliths are present. A chronic left pelvic sidewall cyst posteriorly is not significantly changed from prior and may be minimally smaller. This likely is a lymphocele, today 3.4 x 2.5 cm, previously 4.4 x 3 cm. No new mass. No soft tissue density lesion. No lymphadenopathy. There is no appendicitis, diverticulitis, ileus, or bowel obstruction. Liver, gallbladder, bile ducts, spleen, adrenals, and pancreas are negative. The aorta is nonaneurysmal. No abscess, hematoma, or acute-appearing fluid collection. Degenerative changes to the spine, chronic. Lung bases and bony structures are nonacute. IMPRESSION: 1. Unobstructed unremarkable-appearing urinary tracts. No radiodense stone. No hydroureteronephrosis. Chronic left posterolateral pelvic sidewall cyst, stable if not slightly decreased. 2. No acute-appearing abnormality. No adverse development from prior. Dictated by: Dictated on workstation # [id number]
[2022-06-26 11:54] LABS: BILIRUBIN,URINE NEGATIVE (NEGATIVE); CLARITY,URINE CLEAR; COLOR,URINE YELLOW; GLUCOSE, URINE (UA) NEGATIVE (NEGATIVE); KETONES,URINE NEGATIVE (NEGATIVE); LEUKOCYTE ESTERASE ,URINE NEGATIVE (NEGATIVE); NITRITE,URINE NEGATIVE (NEGATIVE); PROTEIN,URINE NEGATIVE (NEGATIVE)
--- NOTE | 2022-06-26 12:02 | Diagnostic Imaging Report ---
ABDOMEN/KUB 1 VIEW INDICATION: Abdominal pain. COMPARISON: CT abdomen and pelvis performed earlier same day. TECHNIQUE: Supine AP view of the abdomen. FINDINGS: Nonobstructed bowel gas pattern. There are no urinary tract calculi, which were much better evaluated on the CT performed same day. No free intraperitoneal air, also much better evaluated on CT from earlier same day. Stable regional skeleton. IMPRESSION: 1. No radiographic abnormality of the abdomen. 2. Please see CT report from same day which has much more sensitive assessment of intra-abdominal pathology. Dictated by: Dictated on workstation # [id number]
[2022-06-26 12:08] LABS: AMPHETAMINE SCREEN, URINE NEGATIVE (NEGATIVE); BARBITURATE SCREEN URINE NEGATIVE (NEGATIVE); BENZODIAZEPINES SCREEN URINE NEGATIVE (NEGATIVE); CANNABINOID SCREEN, URINE POSITIVE (NEGATIVE); COCAINE SCREEN URINE NEGATIVE (NEGATIVE); METHADONE STAT NEGATIVE (NEGATIVE); OPIATE SCREEN URINE NEGATIVE (NEGATIVE); OXYCODONE STAT NEGATIVE (NEGATIVE); PROPOXYPHENE STAT NEGATIVE (NEGATIVE); TRICYCLIC ANTIDEPRESSANTS SCRE NEGATIVE (NEGATIVE)
[2022-06-26 12:13] LABS: BACTERIA,URINE NEGATIVE /HPF; SQUAMOUS EPITHELIAL CELL,UR 0-2 /HPF
[2022-06-26] MEDS ORDERED: diphenhydrAMINE 50 MG/ML INJ (BENADRYL) IVP ONE (12:45)
[2022-06-26] MEDS ORDERED: ORPHENADRINE 60 MG/2 ML (NORFLEX) AMP (ED ONLY) IV ONE (12:45)
--- NOTE | 2022-06-26 13:54 | Diagnostic Imaging Report ---
PROCEDURE: US Gallbladder. TECHNIQUE: Multiple real-time grayscale images were obtained over the right upper quadrant in various projections. INDICATION: Flank and right abdominal pain Liver measures 20 cm in length without evidence of focal abnormality. Gallbladder has a normal appearance. Biliary tree, pancreas, abdominal aorta and inferior vena cava are obscured by overlying bowel. There is no evidence of free fluid. Right kidney has a normal appearance. IMPRESSION: No acute abnormalities identified however study is limited by overlying bowel. Dictated by: Dictated on workstation # [id number]
--- NOTE | 2022-06-26 14:02 | Diagnostic Imaging Report ---
PROCEDURE: US Scrotum. TECHNIQUE: Multiple real-time grayscale images were obtained over the scrotum in various projections bilaterally. INDICATION: Right testicular pain. COMPARISON: None available. FINDINGS: Right: The right testis is normal in size measuring 4.5 x 2.6 x 3.3 cm. It has homogenous echogenicity without mass or microcalcification. Blood flow is present in the right testis by color doppler imaging, and low resistance waveforms are present. The epididymis is normal. No hydrocele or varicole. Left: The left testis is normal in size measuring 4.3 x 2.2 x 2.3 cm. It has homogenous echogenicity without mass or microcalcification. Blood flow is present in the left testis by color doppler imaging, and low resistance waveforms are present. There is a simple epididymal head cyst measuring 1.0 x 1.2 cm. No features of epididymitis. No hydrocele or varicole. IMPRESSION: 1. No testicular torsion. 2. No epididymitis-orchitis. Dictated by: Dictated on workstation # [id number]
[2022-06-26] MEDS ORDERED: KETO10TA PO (14:16)
[2022-06-26] MEDS ORDERED: TIZA4CAP PO (14:16)
[2022-06-26 14:30] VITALS: BP 167/7
== END 2022-06-26 14:31 | disposition home or self-care (01) ==
LOC: EDUNIT# 10:26 → ER 10:28
DX: R10.84 Generalized abdominal pain (principal)
CPT/HCPCS: 74018; 74176; 76705; 76870; 80053; 80306; 81000; 85025; G0480; 36415; 80320